=== PATIENT | male | born 1930 | race Caucasian/White ===

== ENCOUNTER 2018-03-05 11:24 | Emergency (ER) | payer MEDICARE, OTHER ==
[2018-03-05] MEDS ORDERED: Sodium Chloride 0.9% 10 ML Syringe FLUSH PRN (11:39)
[2018-03-05] MEDS ORDERED: Sodium Chloride 0.9% 1,000 ML IV SCH (11:45)
--- NOTE | 2018-03-05 11:46 | EDM.PDOC ---
<Kaleigh Cadena - Last Filed: 03/05/18 12:04> ED HPI GENERAL MEDICAL PROBLEM - General Chief Complaint: Genitourinary Problem Stated Complaint: PAIN WITH URINATION Time Seen by Provider: 03/05/18 11:46 Source of Information: Reports: Patient, Family (), RN Notes Reviewed History Limitations: Reports: No Limitations - History of Present Illness INITIAL COMMENTS - FREE TEXT/NARRATIVE: Jesse is a 87 year old male who presents to the ED with his today for pain with urination for the past two days. Patient states that he moved from [place] at the end of December, where he had a indwelling doss catheter placed for convenience with the move to [place]. He now resides with his and son at his home. He states that the doss was removed in January and he has been incontinent into briefs since that time. He urinates 5-6 times per day. His helps him with brief changes. He states that he currently cannot walk, but can stand and transfer from bed to chair. He is seen by home health OT/PT/RN 1- 2 times per week. states they tried a number of devices such as a condom catheter, which did not seem to work for the patient. Patient denies any hematuria, skin changes to the penis or groin, no discharge purulent drainage. He denies any abdominal pain or flank pain, though patient does have a history of kidney stones which were ablated. He has no fever, chills, or nightsweats, headache or change in mental status. He has a significant medical history to include CVA, CHF, hypercholesterolemia, and DM II. Patient's PCP is Dr. Rios. - Related Data Allergies Allergy/AdvReac Type Severity Reaction Status Date / Time No Known Allergies Allergy Verified 03/05/18 11:40 Home Meds: Home Meds Carbidopa/Levodopa [Sinemet 25-100 mg Tablet] 1 tab PO BID 03/05/18 [History] Ciprofloxacin HCl [Cipro] 500 mg PO BID #14 tablet 03/05/18 [Rx] Citalopram [Citalopram HBr] 20 mg PO DAILY 03/05/18 [History] Clopidogrel Bisulfate [Plavix] 75 mg PO DAILY 03/05/18 [History] Furosemide [Lasix] 20 mg PO DAILY 03/05/18 [History] Meloxicam 15 mg PO DAILY 03/05/18 [History] Omeprazole 40 mg PO TID 03/05/18 [History] Propranolol [Inderal] 40 mg PO BID 03/05/18 [History] Simvastatin [Zocor] 40 mg PO BEDTIME 03/05/18 [History] amLODIPine [Norvasc] 2.5 mg PO DAILY 03/05/18 [History] ED ROS GENERAL - Review of Systems Review Of Systems: ROS reveals no pertinent complaints other than HPI. ED EXAM, RENAL/ - Physical Exam Exam: See Below Exam Limited By: No Limitations General Appearance: Alert, WD/WN, No Apparent Distress Respiratory/Chest: No Respiratory Distress, Normal Breath Sounds. No: Crackles , Rales, Rhonchi Cardiovascular: Regular Rate, Rhythm, No Gallop, No Murmur GI/Abdominal: Normal Bowel Sounds, Soft, Non-Tender (no suprapubic tenderness), No Distention Neurological: Alert, Oriented, Normal Cognition Psychiatric: Normal Affect, Normal Mood Skin Exam: Warm, Dry, Intact Course - Vital Signs Last Recorded V/S: Last Vital Signs Temp 97.8 F 03/05/18 15:05 Pulse 56 L 03/05/18 15:05 Resp 18 03/05/18 15:05 BP 156/87 H 03/05/18 15:05 Pulse Ox 100 03/05/18 15:05 - Orders/Labs/Meds Orders: Active Orders 24 hr Category Date Time Status Bladder Scan [RC] ASDIRECTED Care 03/05/18 12:01 Active Doss Catheter Insertion [Insert Urinary Catheter] [OM. Care 03/05/18 13:53 Ordered PC] Stat Insert Doss Catheter [Insert Urinary Catheter] [OM.PC] Care 03/05/18 12:45 Ordered Stat Peripheral IV Care [RC] . DIRECTED Care 03/05/18 11:39 Inactive Urinary Catheter Assessment [RC] ASDIRECTED Care 03/05/18 12:45 Active Urinary Catheter Assessment [RC] ASDIRECTED Care 03/05/18 13:54 Active CULTURE URINE [RM] Stat Lab 03/05/18 16:20 Received Labs: Laboratory Tests 03/05/18 03/05/18 03/05/18 Range/Units 12:00 12:00 12:50 WBC 10.19 H (4.23-9.07) K/mm3 RBC 4.25 L (4.63-6.08) M/mm3 Hgb 12.8 L (13.7-17.5) gm/L Hct 39.9 L (40.1-51.0) % MCV 93.9 H (79.0-92.2) fl MCH 30.1 (25.7-32.2) pg MCHC 32.1 L (32.2-35.5) g/dl RDW Std Deviation 45.1 H (35.1-43.9) fL Plt Count 170 (163-337) K/mm3 MPV 11.5 (9.4-12.3) fl Neutrophils % (Manual) 54 (40-60) % Band Neutrophils % 1 (0-10) % Lymphocytes % (Manual) 35 (20-40) % Atypical Lymphs % 0 % Monocytes % (Manual) 7 (2-10) % Eosinophils % (Manual) 3 (0.8-7.0) % Basophils % (Manual) 0 L (0.2-1.2) Platelet Estimate Adequate Plt Morphology Comment Normal RBC Morph Comment Normal Sodium 146 H (136-145) mEq/L Potassium 4.9 (3.5-5.1) mEq/L Chloride 111 H (98-107) mEq/L Carbon Dioxide 27 (21-32) mEq/L Anion Gap 12.9 (5-15) BUN 28 H (7-18) mg/dL Creatinine 1.6 H (0.7-1.3) mg/dL Est Cr Clr Drug Dosing 33.14 mL/min Estimated GFR (MDRD) 41 (>60) mL/min BUN/Creatinine Ratio 17.5 (14-18) Glucose 79 L (83-115) mg/dL Calcium 9.3 (8.5-10.1) mg/dL Total Bilirubin 0.9 (0.2-1.0) mg/dL AST 9 L (15-37) U/L ALT 7 L (16-63) U/L Alkaline Phosphatase 80 (46-116) U/L C-Reactive Protein 0.3 (<1.0) mg/dL Total Protein 6.7 (6.4-8.2) g/dl Albumin 3.2 L (3.4-5.0) g/dl Globulin 3.5 gm/dL Albumin/Globulin Ratio 0.9 L (1-2) Urine Color Yellow (Yellow) Urine Appearance Clear (Clear) Urine pH 6.0 (5.0-8.0) Ur Specific [place] 1.020 (1.005-1.030) Urine Protein Negative (Negative) Urine Glucose (UA) Negative (Negative) Urine Ketones Negative (Negative) Urine Occult Blood Negative (Negative) Urine Nitrite Negative (Negative) Urine Bilirubin Negative (Negative) Urine Urobilinogen 0.2 (0.2-1.0) Ur Leukocyte Esterase Negative (Negative) Urine RBC 0-5 (0-5) /hpf Urine WBC 5-10 H (0-5) /hpf Ur Epithelial Cells 0-5 (0-5) /hpf Amorphous Sediment Few H (NOT SEEN) /hpf Urine Bacteria Few (FEW) /hpf Urine Mucus Moderate H (FEW) /hpf Meds: Medications Discontinued Medications Generic Name Dose Route Start Last Admin Trade Name Freq PRN Reason Stop Dose Admin Sodium Chloride 1,000 mls @ 125 mls/hr 03/05/18 11:45 Normal Saline IV ASDIRECTED SIVA Sodium Chloride 10 ml 03/05/18 11:39 Saline Flush FLUSH ASDIRECTED PRN Keep Vein Open Departure - Departure Disposition: Home, Self-Care 01 Clinical Impression: UTI, Urinary tract infectious disease, Urinary retention due to benign prostatic hyperplasia Chronic kidney disease Qualifiers: Chronic kidney disease stage: unspecified stage Qualified Code(s): N18.9 - Chronic kidney disease, unspecified - Discharge Information Prescriptions: Ciprofloxacin HCl [Cipro] 500 mg PO BID #14 tablet Instructions: Urinary Tract Infection, Adult, Indwelling Urinary Catheter Insertion, Care After Referrals: Elisha Rios MD [Primary Care Provider] - Forms: ED Department Discharge Additional Instructions: It appears you have a urinary tract infection. Urine culture has been obtained. I will start you on Cipro 500 mg 1 tablet twice a day for 7 days. If the culture comes back indicating antibiotic changes required to be notified. In addition after urinating there was residual urine present within your bladder suggesting you have urinary retention unclear what is the cause. This increases your risk of developing a urinary tract infection. Thus Doss catheter was placed. Please make an appointment to see a urologist of your choice in [place]. Keep yourself well-hydrated. Please return back to the ED if you develop fever, chills, nausea vomiting, worsening pain, or any additional new or worsening symptoms. - My Orders Last 24 Hours: My Active Orders 03/05/18 11:39 Peripheral IV Care [RC] . DIRECTED 03/05/18 12:01 Bladder Scan [RC] ASDIRECTED 03/05/18 12:45 Insert Doss Catheter [Insert Urinary Catheter] [OM.PC] Stat Urinary Catheter Assessment [RC] ASDIRECTED 03/05/18 13:53 Doss Catheter Insertion [Insert Urinary Catheter] [OM.PC] Stat 03/05/18 13:54 Urinary Catheter Assessment [RC] ASDIRECTED 03/05/18 16:20 CULTURE URINE [RM] Stat - Assessment/Plan Last 24 Hours: My Active Orders 03/05/18 11:39 Peripheral IV Care [RC] . DIRECTED 03/05/18 12:01 Bladder Scan [RC] ASDIRECTED 03/05/18 12:45 Insert Doss Catheter [Insert Urinary Catheter] [OM.PC] Stat Urinary Catheter Assessment [RC] ASDIRECTED 03/05/18 13:53 Doss Catheter Insertion [Insert Urinary Catheter] [OM.PC] Stat 03/05/18 13:54 Urinary Catheter Assessment [RC] ASDIRECTED 03/05/18 16:20 CULTURE URINE [RM] Stat <Dillon Barone O - Last Filed: 03/05/18 21:03> ED HPI GENERAL MEDICAL PROBLEM - General Source of Information: Reports: Patient Penis Pain Score (Numeric/FACES): 8 ED ROS GENERAL - Review of Systems Review Of Systems: See Below ED EXAM, RENAL/ - Physical Exam Exam: See Below Ears: Hearing Grossly Normal Nose: Normal Inspection Throat/Mouth: Normal Voice, No Airway Compromise Neck: Normal Inspection, Supple Back Exam: Normal Inspection. No: CVA Tenderness (L), CVA Tenderness (R) Extremities: Normal Inspection, Non-Tender, No Pedal Edema Course - Orders/Labs/Meds Labs: Laboratory Tests 03/05/18 03/05/18 03/05/18 Range/Units 12:00 12:00 12:50 WBC 10.19 H (4.23-9.07) K/mm3 RBC 4.25 L (4.63-6.08) M/mm3 Hgb 12.8 L (13.7-17.5) gm/L Hct 39.9 L (40.1-51.0) % MCV 93.9 H (79.0-92.2) fl MCH 30.1 (25.7-32.2) pg MCHC 32.1 L (32.2-35.5) g/dl RDW Std Deviation 45.1 H (35.1-43.9) fL Plt Count 170 (163-337) K/mm3 MPV 11.5 (9.4-12.3) fl Neutrophils % (Manual) 54 (40-60) % Band Neutrophils % 1 (0-10) % Lymphocytes % (Manual) 35 (20-40) % Atypical Lymphs % 0 % Monocytes % (Manual) 7 (2-10) % Eosinophils % (Manual) 3 (0.8-7.0) % Basophils % (Manual) 0 L (0.2-1.2) Platelet Estimate Adequate Plt Morphology Comment Normal RBC Morph Comment Normal Sodium 146 H (136-145) mEq/L Potassium 4.9 (3.5-5.1) mEq/L Chloride 111 H (98-107) mEq/L Carbon Dioxide 27 (21-32) mEq/L Anion Gap 12.9 (5-15) BUN 28 H (7-18) mg/dL Creatinine 1.6 H (0.7-1.3) mg/dL Est Cr Clr Drug Dosing 33.14 mL/min Estimated GFR (MDRD) 41 (>60) mL/min BUN/Creatinine Ratio 17.5 (14-18) Glucose 79 L (83-115) mg/dL Calcium 9.3 (8.5-10.1) mg/dL Total Bilirubin 0.9 (0.2-1.0) mg/dL AST 9 L (15-37) U/L ALT 7 L (16-63) U/L Alkaline Phosphatase 80 (46-116) U/L C-Reactive Protein 0.3 (<1.0) mg/dL Total Protein 6.7 (6.4-8.2) g/dl Albumin 3.2 L (3.4-5.0) g/dl Globulin 3.5 gm/dL Albumin/Globulin Ratio 0.9 L (1-2) Urine Color Yellow (Yellow) Urine Appearance Clear (Clear) Urine pH 6.0 (5.0-8.0) Ur Specific [place] 1.020 (1.005-1.030) Urine Protein Negative (Negative) Urine Glucose (UA) Negative (Negative) Urine Ketones Negative (Negative) Urine Occult Blood Negative (Negative) Urine Nitrite Negative (Negative) Urine Bilirubin Negative (Negative) Urine Urobilinogen 0.2 (0.2-1.0) Ur Leukocyte Esterase Negative (Negative) Urine RBC 0-5 (0-5) /hpf Urine WBC 5-10 H (0-5) /hpf Ur Epithelial Cells 0-5 (0-5) /hpf Amorphous Sediment Few H (NOT SEEN) /hpf Urine Bacteria Few (FEW) /hpf Urine Mucus Moderate H (FEW) /hpf - Re-Assessments/Exams Free Text/Narrative Re-Assessment/Exam: I personally have examined the patient and obtained HPI. Agree with history and examination by Kaleigh HERNANDEZ. IV will be established. Initial labs and studies will include: CBC, chem 14, CRP, UA, and bladder scan. Per nursing staff patient voided during bladder scan. He is incontinent to urine. Complains of pain with urination. Postvoid bladder scan indicated 179 mL remaining. Patient is retaining urine. Order for indwelling Doss catheter with leg bag has been placed. Unclear if patient has neurogenic bladder secondary to stroke. He does have a history of BPH. Labs reviewed: White blood cell count 10.19, hemoglobin 12.8, hematocrit 39.9, platelet count normal, sodium 146, potassium 4.9, chloride 111, EKG 12.9, creatinine 1.6 chronic baseline, and CRP of 0.3. UA micro indicated White blood cell count of 5-10, few amorphous sediment, urine mucus moderate. Urine culture has been obtained. Since patient has voiding symptoms will go ahead and treat for UTI with Cipro 500 mg twice a day. This is a complicated UTI secondary to urinary retention suspect bph/neurogenic bladder. Patient will require evaluation by urology and PCP this coming week. Return precautions discussed with the patient. Patient had no further questions or concerns. Departure - Departure Time of Disposition: 14:30 Condition: Good
== END 2018-03-05 15:10 | disposition home or self-care (01) ==
LOC: JD.ED 11:24
DX: N40.1 Benign prostatic hyperplasia with lower urinary tract symptoms (principal); R33.8 Other retention of urine; N39.0 Urinary tract infection, site not specified; E11.22 Type 2 diabetes mellitus with diabetic chronic kidney disease; N18.9 Chronic kidney disease, unspecified; I50.9 Heart failure, unspecified; E78.00 Pure hypercholesterolemia, unspecified; Z79.02 Long term (current) use of antithrombotics/antiplatelets; Z79.2 Long term (current) use of antibiotics; Z79.891 Long term (current) use of opiate analgesic; Z79.899 Other long term (current) drug therapy; Z86.73 Personal history of transient ischemic attack (TIA), and cerebral infarction without residual deficits
CPT/HCPCS: 36415; 51702; 80053; 81001; 85007; 85027; 86140; 87086; 99284-25

== ENCOUNTER 2019-10-11 00:15 | Emergency (ER) | payer MEDICARE, OTHER ==
[2019-10-11] MEDS ORDERED: Sodium Chloride 0.9% 10 ML Syringe FLUSH PRN (00:51)
[2019-10-11] MEDS ORDERED: Sodium Chloride 0.45% 1,000 ML IV SCH (01:00)
--- NOTE | 2019-10-11 01:50 | EDM.PDOC ---
ED HPI GENERAL MEDICAL PROBLEM - General Chief Complaint: Cardiovascular Problem Stated Complaint: [facility] Time Seen by Provider: 10/11/19 00:37 Source of Information: Reports: Patient, RN Notes Reviewed - History of Present Illness INITIAL COMMENTS - FREE TEXT/NARRATIVE: 89 yr old male has been brought in by [facility] after having near syncopal episode at home a short time ago. This occured when up to the bathroom. [place], weak, dizzy, lightheaded as though he were about to pass out. Feels better now on arrival to ED. No cough, fever, chills or difficulty breathing. No focal weakness. - Related Data Allergies Allergy/AdvReac Type Severity Reaction Status Date / Time No Known Allergies Allergy Verified 10/11/19 00:24 Home Meds: Home Meds Carbidopa/Levodopa [Sinemet 25-100 mg Tablet] 25 - 100 tab PO BID 03/05/18 [History] Citalopram [Citalopram HBr] 20 mg PO DAILY 03/05/18 [History] Clopidogrel Bisulfate [Plavix] 75 mg PO DAILY 03/05/18 [History] Furosemide [Lasix] 20 mg PO DAILY 03/05/18 [History] Glucagon,Human Recombinant [Glucagon Emergency Kit] 1 mg SQ ASDIRECTED PRN 08/19/18 [History] Insulin NPH Hum/Reg Insulin Hm [Novolin 70-30 Flexpen] 20 unit SQ BID 08/19/18 [History] Oxybutynin Chloride [Ditropan Xl] 10 mg PO DAILY 08/19/18 [History] Propranolol [Inderal] 20 mg PO BID 08/19/18 [History] Ciprofloxacin [Ciprofloxacin HCl] 500 mg PO BID 10/01/18 [History] Cyclobenzaprine [Flexeril] 5 mg PO Q8HR PRN 10/01/18 [History] traMADol [Ultram] 50 mg PO Q6HR PRN 10/01/18 [History] Past Medical History Cardiovascular History: Reports: High Cholesterol, Hypertension Genitourinary History: Reports: Retention, Urinary Neurological History: Reports: CVA Endocrine/Metabolic History: Reports: Diabetes, Type II - Past Surgical History Male Surgical History: Reports: Prostate Biopsy Social & Family History - Tobacco Use Smoking Status *Q: Never Smoker - Caffeine Use Caffeine Use: Reports: None ED ROS GENERAL - Review of Systems Review Of Systems: See Below Constitutional: Denies: Fever, Chills HEENT: Reports: No Symptoms Respiratory: Denies: Shortness of Breath, Cough Cardiovascular: Denies: Chest Pain GI/Abdominal: Denies: Abdominal Pain, Diarrhea, Nausea, Vomiting Musculoskeletal: Denies: Shoulder Pain, Arm Pain Skin: Reports: No Symptoms Neurological: Reports: Dizziness. Denies: Headache, Numbness, Tingling, Trouble Speaking, Difficulty Walking, Weakness ED EXAM, GENERAL - Physical Exam Exam: See Below General Appearance: Alert, No Apparent Distress Eye Exam: Bilateral Eye: PERRL Head: Atraumatic Neck: Supple Respiratory/Chest: No Respiratory Distress, Lungs Clear, Normal Breath Sounds Cardiovascular: Regular Rate, Rhythm GI/Abdominal: Soft, Non-Tender. No: Guarding Back Exam: No: CVA Tenderness (L), CVA Tenderness (R) Extremities: Normal Inspection. No: Pedal Edema, Leg Pain, Redness Neurological: Alert, Oriented, No Motor/Sensory Deficits Skin Exam: Warm, Dry, Normal Color EKG INTERPRETATION EKG Date: 10/10/19 Rhythm: Other (NSR with mult. PVC's) [place]: Normal P-Wave: Present QRS: Normal ST-T: Normal Course - Vital Signs Last Recorded V/S: Last Vital Signs Temp 98.2 F 10/11/19 00:18 Pulse 71 10/11/19 00:18 Resp 18 10/11/19 00:18 BP 151/75 H 10/11/19 00:18 Pulse Ox 96 10/11/19 00:18 - Orders/Labs/Meds Orders: Active Orders 24 hr Category Date Time Status EKG 12 Lead [EKG Documentation Completion] [RC] STAT Care 10/11/19 00:51 Active Peripheral IV Care [RC] . DIRECTED Care 10/11/19 00:52 Active Chest 1V Frontal [CR] Stat Exams 10/11/19 00:51 Taken Sodium Chloride 0.45% 1,000 ml Med 10/11/19 01:00 Active IV ASDIRECTED Sodium Chloride 0.9% [Saline Flush] Med 10/11/19 00:51 Active 10 ml FLUSH ASDIRECTED PRN Peripheral IV Insertion Adult [OM.PC] Stat Oth 10/11/19 00:51 Ordered Medication Orders Sodium Chloride (Sodium Chloride 0.45%) 1,000 mls @ 150 mls/hr IV ASDIRECTED SIVA Last Infusion: 10/11/19 03:36 Dose: 75 mls/hr Documented by: Admin: 10/11/19 01:02 Dose: 150 mls/hr Documented by: GILBERT Sodium Chloride (Saline Flush) 10 ml FLUSH ASDIRECTED PRN PRN Reason: Keep Vein Open Last Admin: 10/11/19 01:02 Dose: 10 ml Documented by: GILBERT Labs: Laboratory Tests 10/11/19 10/11/19 10/11/19 Range/Units 01:00 01:00 01:00 WBC 12.20 H (4.23-9.07) K/mm3 RBC 4.41 L (4.63-6.08) M/mm3 Hgb 13.1 L (13.7-17.5) gm/dl Hct 40.9 (40.1-51.0) % MCV 92.7 H (79.0-92.2) fl MCH 29.7 (25.7-32.2) pg MCHC 32.0 L (32.2-35.5) g/dl RDW Std Deviation 44.7 H (35.1-43.9) fL Plt Count 177 (163-337) K/mm3 MPV 11.1 (9.4-12.3) fl Neut % (Auto) 71.7 H (34.0-67.9) % Lymph % (Auto) 17.0 L (21.8-53.1) % [place] % (Auto) 9.8 (5.3-12.2) % Eos % (Auto) 1.2 (0.8-7.0) Baso % (Auto) 0.1 (0.1-1.2) % Neut # (Auto) 8.74 H (1.78-5.38) K/mm3 Lymph # (Auto) 2.08 (1.32-3.57) K/mm3 [place] # (Auto) 1.19 H (0.30-0.82) K/mm3 Eos # (Auto) 0.15 (0.04-0.54) K/mm3 Baso # (Auto) 0.01 (0.01-0.08) K/mm3 Manual Slide Review Normal smear Sodium 138 (136-145) mEq/L Potassium 4.1 (3.5-5.1) mEq/L Chloride 103 (98-107) mEq/L Carbon Dioxide 29 (21-32) mEq/L Anion Gap 10.1 (5-15) BUN 29 H (7-18) mg/dL Creatinine 1.7 H (0.7-1.3) mg/dL Est Cr Clr Drug Dosing 28.91 mL/min Estimated GFR (MDRD) 38 (>60) mL/min BUN/Creatinine Ratio 17.1 (14-18) Glucose 120 H (83-115) mg/dL Calcium 9.1 (8.5-10.1) mg/dL Total Bilirubin 0.7 (0.2-1.0) mg/dL AST 9 L (15-37) U/L ALT 9 L (16-63) U/L Alkaline Phosphatase 87 (46-116) U/L Troponin I 0.029 (0.00-0.056) ng/mL NT-Pro-B Natriuret Pep 293 (0-450) pg/mL Total Protein 7.0 (6.4-8.2) g/dl Albumin 3.3 L (3.4-5.0) g/dl Globulin 3.7 gm/dL Albumin/Globulin Ratio 0.9 L (1-2) 10/11/19 Range/Units 04:08 WBC (4.23-9.07) K/mm3 RBC (4.63-6.08) M/mm3 Hgb (13.7-17.5) gm/dl Hct (40.1-51.0) % MCV (79.0-92.2) fl MCH (25.7-32.2) pg MCHC (32.2-35.5) g/dl RDW Std Deviation (35.1-43.9) fL Plt Count (163-337) K/mm3 MPV (9.4-12.3) fl Neut % (Auto) (34.0-67.9) % Lymph % (Auto) (21.8-53.1) % [place] % (Auto) (5.3-12.2) % Eos % (Auto) (0.8-7.0) Baso % (Auto) (0.1-1.2) % Neut # (Auto) (1.78-5.38) K/mm3 Lymph # (Auto) (1.32-3.57) K/mm3 [place] # (Auto) (0.30-0.82) K/mm3 Eos # (Auto) (0.04-0.54) K/mm3 Baso # (Auto) (0.01-0.08) K/mm3 Manual Slide Review Sodium (136-145) mEq/L Potassium (3.5-5.1) mEq/L Chloride (98-107) mEq/L Carbon Dioxide (21-32) mEq/L Anion Gap (5-15) BUN (7-18) mg/dL Creatinine (0.7-1.3) mg/dL Est Cr Clr Drug Dosing mL/min Estimated GFR (MDRD) (>60) mL/min BUN/Creatinine Ratio (14-18) Glucose (83-115) mg/dL Calcium (8.5-10.1) mg/dL Total Bilirubin (0.2-1.0) mg/dL AST (15-37) U/L ALT (16-63) U/L Alkaline Phosphatase (46-116) U/L Troponin I 0.028 (0.00-0.056) ng/mL NT-Pro-B Natriuret Pep (0-450) pg/mL Total Protein (6.4-8.2) g/dl Albumin (3.4-5.0) g/dl Globulin gm/dL Albumin/Globulin Ratio (1-2) Meds: Medications Generic Name Dose Route Start Last Admin Trade Name Freq PRN Reason Stop Dose Admin Sodium Chloride 1,000 mls @ 150 mls/hr 10/11/19 01:00 10/11/19 03:36 Sodium Chloride 0.45% IV 75 mls/hr ASDIRECTED SIVA Infusion Sodium Chloride 10 ml 10/11/19 00:51 10/11/19 01:02 Saline Flush FLUSH 10 ml ASDIRECTED PRN Administration Keep Vein Open - Re-Assessments/Exams Free Text/Narrative Re-Assessment/Exam: 10/11/19 02:08 trop very slightly elevated at .029. BUN and creatnine up very mildly from baseline. Will give a 250 NS bolus and than go back to 150/hr. Will check a 3 hr trop. 10/11/19 04:47 repeat trop .028. He continues to have occasional PVC's and occasiona PAC's. He has been sleeping. Will plan to discharge him home at this time. Departure - Departure Time of Disposition: 04:50 Disposition: Home, Self-Care 01 Condition: Fair Clinical Impression: Near syncope, Renal insufficiency Referrals: PCP,None [Primary Care Provider] - Forms: ED Department Discharge Additional Instructions: Your heart and lungs have checked out well this morning and there has been no evidence for stroke. Your lab work did show that you were mildly dehydrated. You have been given some IV fluid to help correct that. Continue current medications. Follow up with your regular medical provider as needed. Return to ED as needed if symptoms worsening in any way. Sepsis Event Note (ED) - Evaluation Sepsis Screening Result: No Definite Risk - Focused Exam Vital Signs: Vital Signs Temp Pulse Resp BP Pulse Ox 10/11/19 00:18 98.2 F 71 18 151/75 H 96 - My Orders Last 24 Hours: My Active Orders 10/11/19 00:51 EKG 12 Lead [EKG Documentation Completion] [RC] STAT Chest 1V Frontal [CR] Stat Sodium Chloride 0.9% [Saline Flush] 10 ml FLUSH ASDIRECTED PRN Peripheral IV Insertion Adult [OM.PC] Stat 10/11/19 00:52 Peripheral IV Care [RC] . DIRECTED 10/11/19 01:00 Sodium Chloride 0.45% 1,000 ml IV ASDIRECTED - Assessment/Plan Last 24 Hours: My Active Orders 10/11/19 00:51 EKG 12 Lead [EKG Documentation Completion] [RC] STAT Chest 1V Frontal [CR] Stat Sodium Chloride 0.9% [Saline Flush] 10 ml FLUSH ASDIRECTED PRN Peripheral IV Insertion Adult [OM.PC] Stat 10/11/19 00:52 Peripheral IV Care [RC] . DIRECTED 10/11/19 01:00 Sodium Chloride 0.45% 1,000 ml IV ASDIRECTED
--- NOTE | 2019-10-12 10:46 | CR ---
Chest: Portable view of the chest was obtained. Comparison: Prior chest x-ray of 10/01/18. Heart size is normal. Tortuous thoracic aorta is seen. Lungs are clear with no acute parenchymal change. Bony structures are grossly intact. Impression: 1. Nothing acute is seen on portable chest x-ray. Diagnostic code #1 This report was dictated in MDT
== END 2019-10-11 06:00 | disposition home or self-care (01) ==
LOC: JD.ED 00:15
DX: R55 Syncope and collapse (principal); N28.9 Disorder of kidney and ureter, unspecified; I10 Essential (primary) hypertension; E11.9 Type 2 diabetes mellitus without complications; Z86.73 Personal history of transient ischemic attack (TIA), and cerebral infarction without residual deficits; Z79.899 Other long term (current) drug therapy; Z79.02 Long term (current) use of antithrombotics/antiplatelets
CPT/HCPCS: 36415; 71045; 80053; 83880; 84484; 85025; 93005; 96360; 96361; 99285; J7030